=== PATIENT | female | born 1990 | race Caucasian/White ===

== ENCOUNTER 2018-01-22 21:08 | Emergency (ER) | payer OTHER ==
[~2018-01-22] VITALS: Ht 152.4 cm; Wt 45.4 kg
[2018-01-22 21:21] VITALS: BP 108/36
--- NOTE | 2018-01-22 21:22 | NUR ---
PT AMBULATED TO BED 10
--- NOTE | 2018-01-22 21:24 | NUR ---
27/F C/O ABD CRAMPING AND VAG BLEED X 1900, REPORTS BLOOD-TINGED TISSUE WHEN WIPING. DENIES HEAVY BLEEDING/CLOTS. A2, STATES SHE IS 5 WEEKS . DENIES CP/SOB, DIZZINESS/LIGHTHEADEDNESS. DENIES PMH
--- NOTE | 2018-01-22 22:01 | NUR ---
US AT BEDSIDE
[2018-01-22 22:23] LABS: BASOPHILS % (AUTO) 0.3 % (0.0-2.0); EOSINOPHILS # (AUTO) 0.2 K/uL (0-0.4); EOSINOPHILS % (AUTO) 2.7 % (0.0-4.0); HEMATOCRIT 41.7 % (36-48); HEMOGLOBIN 13.7 g/dL (12.0-16.0); LYMPHOCYTES # (AUTO) 2.1 K/uL (2.5-16.5); MEAN CORPUSCULAR HEMOGLOBIN 29 pg (27-31); MEAN CORPUSCULAR HGB CONC 33 g/dL (33-37); MEAN CORPUSCULAR VOLUME 89.8 fL (80-94); MONOCYTES # (AUTO) 0.5 K/uL (0.8-1.0); MONOCYTES % (AUTO) 6.6 % (1.7-9.3); NEUTROPHILS # (AUTO) 4.2 K/uL (1.8-7.7); NEUTROPHILS % (AUTO) 60.4 % (42.2-75.2); PLATELET COUNT (AUTO) 218 K/uL (140-450); RED BLOOD CELL COUNT(AUTO) 4.65 MIL/uL (4.20-5.40); RED CELL DISTRIBUTION WIDTH 12.9 % (11.6-13.7)
[2018-01-22] MEDS ORDERED: ACETAMINOPHEN EXTRA STRENGTH 500 MG TAB PO ONE (23:10)
[2018-01-22 23:40] LABS: APPEARANCE,URINE CLEAR (CLEAR); BILIRUBIN,URINE NEGATIVE (NEGATIVE); BLOOD, URINE NEGATIVE (NEGATIVE); COLOR,URINE YELLOW (YELLOW); LEUKOCYTE ESTERASE ,URINE NEGATIVE (NEGATIVE); NITRITE, URINE NEGATIVE (NEGATIVE); UGLUCOSE NEGATIVE (NEGATIVE)
[2018-01-22 23:56] VITALS: BP 109/63
== END 2018-01-22 23:55 | disposition home or self-care (01) ==
LOC: MED 21:08
DX: O20.0 Threatened abortion (principal); Z3A.01 Less than 8 weeks gestation of pregnancy
CPT/HCPCS: 36415; 76817; 81003; 81025; 84702; 85025; 86900; 86901; 99284; Q0092

== ENCOUNTER 2018-04-13 20:46 | Emergency (ER) | payer OTHER ==
[~2018-04-13] VITALS: Ht 149.9 cm; Wt 45.8 kg
[2018-04-13 21:04] VITALS: BP 110/56
--- NOTE | 2018-04-13 21:04 | NUR ---
TO BED # 12 AMBULATORY, REPORT GIVEN TO ALEJANDRA VILLAR
[2018-04-13] MEDS ORDERED: ONDANSETRON 4 MG ODT PO ONE (21:30)
[2018-04-13] MEDS ORDERED: ACETAMINOPHEN EXTRA STRENGTH 500 MG TAB PO ONE (21:30)
--- NOTE | 2018-04-13 21:36 | NUR ---
PT C/O SCANT BROWN VAG DISCHARGE SINCE YESTERDAY AND DIZZINESS, STATES SHE CHANGED PANTY LINER 2 TIMES SINCE THEN., 18 WEEKS . VSS. FHTS 144. PT DENIES N/V/D; SKIN IS INTACT, PINK/WARM/DRY; AAOX4, PERRL, WITH EVEN AND STEADY GAIT; LUNGS CLEAR BL, BREATHING UNLABORED; HR EVEN AND REGULAR, BL PERIPHERAL PULSES PRESENT; BS ACTIVE X4, NO TENDERNESS TO PALPATION, NO HEPATOSPLENOMEGALLY PALPATED, RESONANT TO PERCUSSION; PT DENIES ANY FEVER, CP, SOB, OR COUGH AT THIS TIME; PT STATES 0/10 PAIN AT THIS TIME; VSS; PATIENT POSITIONED FOR COMFORT; HOB ELEVATED; BEDRAILS UP X2; BED DOWN.
[2018-04-13 21:52] LABS: APPEARANCE,URINE CLEAR (CLEAR); BILIRUBIN,URINE NEGATIVE (NEGATIVE); BLOOD, URINE NEGATIVE (NEGATIVE); COLOR,URINE YELLOW (YELLOW); LEUKOCYTE ESTERASE ,URINE NEGATIVE (NEGATIVE); NITRITE, URINE NEGATIVE (NEGATIVE); UGLUCOSE NEGATIVE (NEGATIVE)
[2018-04-13 22:53] VITALS: BP 92/52
== END 2018-04-13 23:07 | disposition home or self-care (01) ==
LOC: MED 20:46
DX: O26.892 Other specified pregnancy related conditions, second trimester (principal); R51 Headache; R11.0 Nausea; R42 Dizziness and giddiness; Z3A.17 17 weeks gestation of pregnancy
CPT/HCPCS: 81003; 81025; 99283; Q0162

== ENCOUNTER 2019-01-16 04:19 | Emergency (ER) | payer OTHER ==
[~2019-01-16] VITALS: Ht 149.9 cm; Wt 48.1 kg
[2019-01-16 04:35] VITALS: BP 116/55
--- NOTE | 2019-01-16 04:55 | NUR ---
PT TAKEN TO BED 9
--- NOTE | 2019-01-16 04:56 | NUR ---
FLU SWAB DONE, SENT TO LAB
--- NOTE | 2019-01-16 05:00 | NUR ---
28 Y/O FEMALE PRESENTS TO ED, C/O COUGHING WITH CONGESTION. PT STATES SYMPTOMS STARTED ONE WEEK AGO. COUGH IS NONPRODUCTIVE. PT DENIES ANY DIFFICULTY BREATHING OR SOB. LUNG SOUNDS BILAT CLEAR. PT DENIES ANY CHEST PAIN. DENIES N/V/D. NO FEVER NOTED. ERMD MADE AWARE. WILL CONTINUE TO MONITOR.
--- NOTE | 2019-01-16 05:13 | NUR ---
X-Ray at bedside.
--- NOTE | 2019-01-16 05:28 | NUR ---
Dr. Choi examining patient.
[2019-01-16 06:32] VITALS: BP 115/78
--- NOTE | 2019-01-16 06:32 | NUR ---
Patient discharged with v/s stable. Written and verbal after care instructions given and explained. Patient alert, oriented and verbalized understanding of instructions. Ambulatory with steady gait. All questions addressed prior to discharge. ID band removed. Patient advised to follow up with PMD. Rx of PROMETHAZINE ; FLONASE given. Patient educated on indication of medication including possible reaction and side effects. Opportunity to ask questions provided and answered.
== END 2019-01-16 06:32 | disposition home or self-care (01) ==
LOC: MED 04:19
DX: R05 Cough (principal)
CPT/HCPCS: 71045; 87804; 99284; Q0092

== ENCOUNTER 2020-08-08 17:12 | Emergency (ER) | payer OTHER ==
[~2020-08-08] VITALS: Ht 149.9 cm; Wt 49.4 kg
[2020-08-08 17:12] VITALS: BP 118/68
--- NOTE | 2020-08-08 17:12 | NUR ---
Patient BIBA to bed 7 at this time.
--- NOTE | 2020-08-08 17:15 | NUR ---
29 Y/O FEMALE BIBA FROM HOME FOLLOWING UNWITNESSED SYNCOPAL EPISODE AT HOME. PT STATES THAT SHE HAD "POPPING IN HER EARS AND LOSS OF VISION" THEN SHE WOKE UP ON HER BED. PT IS NOW C/O 9/10 HEADACHE WITH NAUSEA/VOMITING AND SENSITIVITY OF LIGHT. PT IS UNAWARE IF SHE HIT HER HEAD. PT STATES THIS HAPPENED X2 YEARS AGO WHEN SHE WAS BECAUSE SHE DEHYDRATED. PT A/O X4 WITH EVEN AND UNLABORED RESPIRATIONS. PT IN GOWN AND GIVEN EMESIS BAG PMH:DENIES NKDA
--- NOTE | 2020-08-08 17:37 | NUR ---
DR BRICE AT BEDSIDE EVALUATING PT
[2020-08-08] MEDS ORDERED: ONDANSETRON 4 MG/2 ML VIAL IVP ONE (17:40)
[2020-08-08] MEDS ORDERED: NACL 0.9% 1,000 ML IV ONE (17:40)
[2020-08-08] MEDS ORDERED: fentaNYL citrate 0.05 MG/ML VIAL IVP ONE (17:40)
--- NOTE | 2020-08-08 17:41 | NUR ---
PT AMBULATED TO RESTROOM FOR URINE SAMPLE
--- NOTE | 2020-08-08 17:51 | NUR ---
20 G IV ESTABLISHED TO R AC. BLOOD SAMPLE COLLECTED VIA IV AND GIVEN TO WINDOW INSTALLER
--- NOTE | 2020-08-08 17:56 | NUR ---
RAD AT BEDSIDE
[2020-08-08 17:58] LABS: BASOPHILS % (AUTO) 0.3 % (0.0-2.0); EOSINOPHILS # (AUTO) 0.1 K/uL (0-0.4); EOSINOPHILS % (AUTO) 1.4 % (0.0-4.0); HEMATOCRIT 45.7 % (36-48); HEMOGLOBIN 15.2 g/dL (12.0-16.0); LYMPHOCYTES # (AUTO) 1.8 K/uL (2.5-16.5); LYMPHOCYTES % (AUTO) 28.5 % (20.5-51.1); MEAN CORPUSCULAR HEMOGLOBIN 30 pg (27-31); MEAN CORPUSCULAR HGB CONC 33 g/dL (33-37); MEAN CORPUSCULAR VOLUME 91.1 fL (80-94); MONOCYTES # (AUTO) 0.4 K/uL (0.8-1.0); MONOCYTES % (AUTO) 6.2 % (1.7-9.3); NEUTROPHILS # (AUTO) 4.1 K/uL (1.8-7.7); NEUTROPHILS % (AUTO) 63.6 % (42.2-75.2); PLATELET COUNT (AUTO) 231 K/uL (140-450); RED BLOOD CELL COUNT(AUTO) 5.02 MIL/uL (4.20-5.40); RED CELL DISTRIBUTION WIDTH 13.5 % (11.6-13.7); WHITE BLOOD COUNT (AUTO) 6.5 K/uL (4.8-10.8)
[2020-08-08 18:07] LABS: ANION GAP 16.2 (8-16); CARBON DIOXIDE 26.6 mmol/L (21-32); CREATININE 0.6 mg/dL (0.6-1.3); POTASSIUM 3.8 mmol/L (3.5-5.1)
[2020-08-08 18:11] LABS: PROTHROMBIN TIME 9.7 secs (10.8-13.4)
--- NOTE | 2020-08-08 18:37 | NUR ---
PT TAKEN TO CT VIA FRIDA
--- NOTE | 2020-08-08 18:59 | NUR ---
PT BACK FROM CT
--- NOTE | 2020-08-08 19:11 | NUR ---
REPORT GIVEN TO NYLA VILLAR, TRANSFER OF CARE AT THIS TIME
--- NOTE | 2020-08-08 19:13 | NUR ---
RECEIVED REPORT FROM JIAN HAIR FOR CONTINUITY OF CARE
--- NOTE | 2020-08-08 19:15 | NUR ---
ekg performed at bedside. ekg reads sinus rhythm @ 78
[2020-08-08] MEDS ORDERED: ACET-10509 PO (19:51)
--- NOTE | 2020-08-08 20:30 | NUR ---
PT VSS. PT WAS IV WAS D/C. NO SIGN OF DISTRESS NOTED. PT WAS INSTRUCTED TO FOLLOW UP WITH PCP AND EDUCATED ON IN HOME CARE. PT UNDERSTOOD, MEDICATION PRESCRIPTION GIVEN. PT AMBULATED OUT OF ER. 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
== END 2020-08-08 20:24 | disposition home or self-care (01) ==
LOC: MED 17:12
DX: R55 Syncope and collapse (principal); R51.9 Headache, unspecified; R11.0 Nausea; Z79.899 Other long term (current) drug therapy
CPT/HCPCS: 36415; 70496; 70498; 71045; 80048; 81002; 81025; 85025; 85610; 85730; 93005; 96361; 96374; 96375; 99285; J2405; J3010; J7030; Q9967